=== PATIENT | male | born 1935 | race Caucasian/White ===

== ENCOUNTER 2021-02-18 10:06 | Emergency (ER) | payer MEDICARE, OTHER ==
[~2021-02-18 10:06] MED LIST: ASPIRIN325 MG PO; LOVENOX40 MG/0.4 SC
== END 2021-02-18 11:29 | disposition home or self-care (01) ==
LOC: FER 10:06
DX: S20.211A Contusion of right front wall of thorax, initial encounter (principal); R91.8 Other nonspecific abnormal finding of lung field; G20 Parkinson's disease; Z88.5 Allergy status to narcotic agent; Z79.899 Other long term (current) drug therapy; W07.XXXA Fall from chair, initial encounter; Y92.009 Unspecified place in unspecified non-institutional (private) residence as the place of occurrence of the external cause
CPT/HCPCS: 71101

== ENCOUNTER 2021-02-25 17:58 | Emergency (ER) | payer MEDICARE, OTHER | END 2021-02-25 20:40 | disposition home or self-care (01) | LOC: FER 17:58 | DX: S42.031A Displaced fracture of lateral end of right clavicle, initial encounter for closed fracture (principal); S50.811A Abrasion of right forearm, initial encounter; S50.311A Abrasion of right elbow, initial encounter; M79.645 Pain in left finger(s); G20 Parkinson's disease; M19.011 Primary osteoarthritis, right shoulder; Z88.5 Allergy status to narcotic agent; W10.9XXA Fall (on) (from) unspecified stairs and steps, initial encounter | CPT/HCPCS: 73020 ==

== ENCOUNTER 2021-07-24 11:55 | Emergency (ER) | payer MEDICARE, OTHER ==
[2021-07-24] MEDS ORDERED: VIBRAMYCIN100 MG PO (18:46)
== END 2021-07-24 18:56 | disposition home or self-care (01) ==
LOC: FER 11:55
DX: S01.111A Laceration without foreign body of right eyelid and periocular area, initial encounter (principal); Z23 Encounter for immunization; W19.XXXA Unspecified fall, initial encounter; Y92.009 Unspecified place in unspecified non-institutional (private) residence as the place of occurrence of the external cause
CPT/HCPCS: 70450; 90471; 90715

== ENCOUNTER 2021-07-26 09:56 | Emergency (ER) | payer MEDICARE, OTHER ==
[~2021-07-26 09:56] MED LIST changes: +VIBRAMYCIN100 MG PO
[2021-07-26 10:14] LABS: BASOPHIL 0.7 % (0-2); EOSINOPHIL 2.2 % (0-7); HCT 36.8 % (42.0-52.0); LYMPHOCYTE 17.8 % (15-48); MCH 31.2 pg (25.0-31.0); MCHC 32.6 g/dL (32.0-36.0); MCV 95.6 fL (78.0-100.0); MONOCYTE 8.8 % (0-12); MPV 9.7 fL (6.0-9.5); NEUTROPHIL 70.2 % (41-80); NRBC 0; PLT 158 K/uL (150-400); RBC 3.85 M/uL (4.70-6.00); WBC 9.2 K/uL (4.0-10.5)
[2021-07-26 10:40] LABS: ALBUMIN 3.2 g/dL (3.4-5.0); BILIRUBIN - TOTAL 0.8 mg/dL (0.2-1.0); BUN/CREAT RATIO (CALC) 18.8 RATIO; CREATININE 0.64 mg/dL (0.67-1.17); GLOBULIN (CALCULATION) 4.1 g/dL; POTASSIUM 3.7 mmol/L (3.5-5.1); TOTAL PROTEIN 7.3 g/dL (6.4-8.2)
[2021-07-26 11:43] LABS: BILIRUBIN NEGATIVE (NEGATIVE); BLOOD TRACE-INTACT Ery/uL (NEGATIVE); CLARITY CLEAR (CLEAR); COLOR YELLOW (YELLOW); GLUCOSE (U) NORMAL (NORMAL); LEUKOCYTES NEGATIVE Leu/uL (NEGATIVE); NITRITE NEGATIVE (NEGATIVE); PROTEIN TRACE (LOW) mg/dL (NEGATIVE); SPECIFIC GRAVITY 1.025 (1.001-1.030); UROBILINOGEN 0.2 mg/dL (0.2-1.0)
[2021-07-26 11:49] LABS: BACTERIA TRACE; SQUAMOUS EPITHELIAL CELLS RARE
== END 2021-07-26 12:50 | disposition home or self-care (01) ==
LOC: FER 09:56
PROVIDERS: Emergency Medicine
DX: G20 Parkinson's disease (principal); F02.80 Dementia in other diseases classified elsewhere, unspecified severity, without behavioral disturbance, psychotic disturbance, mood disturbance, and anxiety; S01.91XD Laceration without foreign body of unspecified part of head, subsequent encounter; J43.9 Emphysema, unspecified; Z88.5 Allergy status to narcotic agent; W19.XXXD Unspecified fall, subsequent encounter
CPT/HCPCS: 36415; 36600; 70450; 71045; 80053; 81001; 82803; 84484; 85025; 93005

== ENCOUNTER 2021-11-07 10:38 | Emergency (ER) | payer MEDICARE, OTHER ==
[2021-11-07 12:00] LABS: BASOPHIL 0.5 % (0-2); HCT 38.5 % (42.0-52.0); HGB 12.6 g/dl (13.2-18.0); LYMPHOCYTE 20.7 % (15-48); MCH 31.8 pg (25.0-31.0); MCHC 32.7 g/dL (32.0-36.0); MCV 97.2 fL (78.0-100.0); MONOCYTE 9.3 % (0-12); MPV 10.2 fL (6.0-9.5); NEUTROPHIL 66.1 % (41-80); NRBC 0; PLT 181 K/uL (150-400); RBC 3.96 M/uL (4.70-6.00); RDW 13.6 % (11.5-14.0); WBC 7.7 K/uL (4.0-10.5)
[2021-11-07 12:38] LABS: CORONAVIRUS 2019 SARS-COV-2 NEGATIVE (NEGATIVE); INFLUENZA A NAA NEGATIVE (NEGATIVE)
[2021-11-07 12:43] LABS: ALBUMIN 3.5 g/dL (3.4-5.0); BILIRUBIN - TOTAL 0.7 mg/dL (0.2-1.0); BUN/CREAT RATIO (CALC) 17.4 RATIO; CREATININE 0.69 mg/dL (0.67-1.17); GLOBULIN (CALCULATION) 4.6 g/dL; POTASSIUM 4.4 mmol/L (3.5-5.1); TOTAL PROTEIN 8.1 g/dL (6.4-8.2)
== END 2021-11-07 13:09 | disposition home or self-care (01) ==
LOC: FER 10:38
PROVIDERS: Emergency Medicine
DX: R91.8 Other nonspecific abnormal finding of lung field (principal); G20 Parkinson's disease; F02.80 Dementia in other diseases classified elsewhere, unspecified severity, without behavioral disturbance, psychotic disturbance, mood disturbance, and anxiety; Z88.5 Allergy status to narcotic agent; Z20.822 Contact with and (suspected) exposure to COVID-19
CPT/HCPCS: 36415; 71045; 80053; 83605; 83880; 84145; 84484; 85025; 87040; 93005; U0002

== ENCOUNTER 2021-12-29 22:32 | Inpatient (IN) | payer MEDICARE, OTHER ==
[~2021-12-29] VITALS: Ht 175.3 cm; Wt 83.0 kg
[2021-12-30 00:24] LABS: BASOPHIL 0.4 % (0-2); EOSINOPHIL 2.1 % (0-7); HCT 38.2 % (42.0-52.0); HGB 12.2 g/dl (13.2-18.0); LYMPHOCYTE 15.2 % (15-48); MCH 31.7 pg (25.0-31.0); MCHC 31.9 g/dL (32.0-36.0); MCV 99.2 fL (78.0-100.0); MONOCYTE 12.5 % (0-12); NEUTROPHIL 69.2 % (41-80); NRBC 0; PLT 175 K/uL (150-400); RBC 3.85 M/uL (4.70-6.00); RDW 13.7 % (11.5-14.0); WBC 9.4 K/uL (4.0-10.5)
[2021-12-30 00:28] LABS: ALBUMIN 3.2 g/dL (3.4-5.0); BILIRUBIN - TOTAL 0.7 mg/dL (0.2-1.0); BUN/CREAT RATIO (CALC) 36.8 RATIO; CREATININE 0.57 mg/dL (0.67-1.17); GLOBULIN (CALCULATION) 4.6 g/dL; INR 1.33 (0.9-1.2); PROTHROMBIN TIME 15.8 SECONDS (11.8-13.4); TOTAL PROTEIN 7.8 g/dL (6.4-8.2)
[2021-12-30 01:15] LABS: BILIRUBIN NEGATIVE (NEGATIVE); BLOOD 1+ Ery/uL (NEGATIVE); CLARITY CLEAR (CLEAR); COLOR YELLOW (YELLOW); GLUCOSE (U) NORMAL (NORMAL); LEUKOCYTES 3+ Leu/uL (NEGATIVE); NITRITE NEGATIVE (NEGATIVE); PROTEIN TRACE (LOW) mg/dL (NEGATIVE)
[2021-12-30 01:25] LABS: BACTERIA TRACE; SQUAMOUS EPITHELIAL CELLS RARE
[2021-12-30] MEDS ORDERED: CARBIDOPA-LEVO1 EAC1 PO (09:39)
[2021-12-31 06:00] LABS: BASOPHIL 0.5 % (0-2); EOSINOPHIL 2.5 % (0-7); HCT 33.2 % (42.0-52.0); HGB 10.7 g/dl (13.2-18.0); LYMPHOCYTE 14.6 % (15-48); MCH 31.9 pg (25.0-31.0); MCHC 32.2 g/dL (32.0-36.0); MCV 99.1 fL (78.0-100.0); MONOCYTE 13.1 % (0-12); MPV 9.7 fL (6.0-9.5); NEUTROPHIL 68.9 % (41-80); NRBC 0; PLT 149 K/uL (150-400); RBC 3.35 M/uL (4.70-6.00); RDW 13.8 % (11.5-14.0); WBC 7.5 K/uL (4.0-10.5)
[2021-12-31 06:19] LABS: CREATININE 0.61 mg/dL (0.67-1.17); POTASSIUM 3.6 mmol/L (3.5-5.1)
[2021-12-31 14:20] LABS: BILIRUBIN NEGATIVE (NEGATIVE); BLOOD 1+ Ery/uL (NEGATIVE); CLARITY CLEAR (CLEAR); COLOR YELLOW (YELLOW); GLUCOSE (U) NORMAL (NORMAL); LEUKOCYTES TRACE Leu/uL (NEGATIVE); NITRITE NEGATIVE (NEGATIVE); PROTEIN TRACE (LOW) mg/dL (NEGATIVE); SPECIFIC GRAVITY 1.025 (1.001-1.030)
[2021-12-31] MEDS ORDERED: NEBULIZER UNIT NEB (14:25)
[2021-12-31] MEDS ORDERED: CEFDINIR300 MG PO (14:25)
[2021-12-31] MEDS ORDERED: DUONEB 2.5-0.5M1 AMP INH (14:25)
[2021-12-31 14:30] LABS: BACTERIA 1+
[2021-12-31 14:31] LABS: URINARY RBC 20-50
== END 2021-12-31 16:21 | disposition home health service (06) | DRG 689 ==
LOC: FER 22:32 → FTCU 12-30 03:02
PROVIDERS: Emergency Medicine; Nurse Practitioner Acute Care; ADMIT Internal Medicine
DX: N30.00 Acute cystitis without hematuria (principal); G93.41 Metabolic encephalopathy; J44.1 Chronic obstructive pulmonary disease with (acute) exacerbation; I48.91 Unspecified atrial fibrillation; G20 Parkinson's disease; F02.80 Dementia in other diseases classified elsewhere, unspecified severity, without behavioral disturbance, psychotic disturbance, mood disturbance, and anxiety; R91.8 Other nonspecific abnormal finding of lung field; D50.9 Iron deficiency anemia, unspecified; Z96.642 Presence of left artificial hip joint; I51.7 Cardiomegaly; R60.0 Localized edema; Z79.82 Long term (current) use of aspirin; Z83.2 Family history of diseases of the blood and blood-forming organs and certain disorders involving the immune mechanism; Z85.46 Personal history of malignant neoplasm of prostate; Z79.899 Other long term (current) drug therapy; Z87.891 Personal history of nicotine dependence; Z88.5 Allergy status to narcotic agent; Z92.3 Personal history of irradiation; Z98.41 Cataract extraction status, right eye; Z98.42 Cataract extraction status, left eye; Z98.890 Other specified postprocedural states
CPT/HCPCS: 36415; 36600; 70450; 71045; 80048; 80053; 81001; 82140; 82803; 84145; 85025; 85610; 86140; 87088; 93005; 94010; 94640; 94667; 94668; 94762; 97162; J0696; J1650; J1940; J7030; U0002

== ENCOUNTER 2022-02-06 03:34 | Emergency (ER) | payer MEDICARE, OTHER ==
[~2022-02-06 03:34] MED LIST changes: +CARBIDOPA-LEVO1 EAC1 PO; +CEFDINIR300 MG PO; +DUONEB 2.5-0.5M1 AMP INH; +NEBULIZER UNIT NEB
[2022-02-06 04:06] LABS: BASOPHIL 0.7 % (0-2); EOSINOPHIL 5.5 % (0-7); HCT 39.7 % (42.0-52.0); HGB 12.9 g/dl (13.2-18.0); LYMPHOCYTE 21.3 % (15-48); MCH 32.3 pg (25.0-31.0); MCHC 32.5 g/dL (32.0-36.0); MCV 99.3 fL (78.0-100.0); MONOCYTE 9.6 % (0-12); MPV 9.5 fL (6.0-9.5); NEUTROPHIL 62.5 % (41-80); NRBC 0; PLT 160 K/uL (150-400); WBC 7.3 K/uL (4.0-10.5)
[2022-02-06 04:36] LABS: ALBUMIN 3.2 g/dL (3.4-5.0); BILIRUBIN - TOTAL 0.5 mg/dL (0.2-1.0); BUN/CREAT RATIO (CALC) 25.4 RATIO; CREATININE 0.67 mg/dL (0.67-1.17); GLOBULIN (CALCULATION) 4.3 g/dL; POTASSIUM 3.8 mmol/L (3.5-5.1); TOTAL PROTEIN 7.5 g/dL (6.4-8.2)
[2022-02-06 05:09] LABS: CORONAVIRUS 2019 SARS-COV-2 NEGATIVE (NEGATIVE); INFLUENZA A NAA NEGATIVE (NEGATIVE)
[2022-02-06 06:09] LABS: BILIRUBIN NEGATIVE (NEGATIVE); BLOOD NEGATIVE Ery/uL (NEGATIVE); CLARITY CLEAR (CLEAR); COLOR YELLOW (YELLOW); GLUCOSE (U) NORMAL (NORMAL); LEUKOCYTES NEGATIVE Leu/uL (NEGATIVE); NITRITE NEGATIVE (NEGATIVE); PROTEIN 1+ mg/dL (NEGATIVE); SPECIFIC GRAVITY 1.025 (1.001-1.030); UROBILINOGEN 0.2 mg/dL (0.2-1.0)
[2022-02-06 06:15] LABS: SQUAMOUS EPITHELIAL CELLS RARE
[2022-02-06 06:20] LABS: INR 1.24 (0.9-1.2); PROTHROMBIN TIME 15.2 SECONDS (11.9-13.9); PTT 28.3 SECONDS (24.9-34.6)
== END 2022-02-06 06:40 | disposition home or self-care (01) ==
LOC: FER 03:34
PROVIDERS: Internal Medicine
DX: S61.412A Laceration without foreign body of left hand, initial encounter (principal); S80.02XA Contusion of left knee, initial encounter; S80.01XA Contusion of right knee, initial encounter; J18.1 Lobar pneumonia, unspecified organism; I71.2 Thoracic aortic aneurysm, without rupture; S22.49XD Multiple fractures of ribs, unspecified side, subsequent encounter for fracture with routine healing; G20 Parkinson's disease; Z20.822 Contact with and (suspected) exposure to COVID-19; Z88.5 Allergy status to narcotic agent; Z79.899 Other long term (current) drug therapy; W06.XXXA Fall from bed, initial encounter; Y92.009 Unspecified place in unspecified non-institutional (private) residence as the place of occurrence of the external cause
CPT/HCPCS: 36415; 70450; 71250; 72170; 73560; 80053; 81001; 82140; 83605; 83735; 83880; 84145; 84439; 84443; 84484; 85025; 85610; 85730; 93005; U0002

== ENCOUNTER 2022-04-16 11:20 | Emergency (ER) | payer MEDICARE, OTHER ==
[2022-04-16 13:20] LABS: BASOPHIL 0.6 % (0-2); EOSINOPHIL 4.7 % (0-7); HCT 40.3 % (42.0-52.0); HGB 12.8 g/dl (13.2-18.0); LYMPHOCYTE 16.3 % (15-48); MCH 32.3 pg (25.0-31.0); MCHC 31.8 g/dL (32.0-36.0); MCV 101.8 fL (78.0-100.0); MONOCYTE 8.5 % (0-12); MPV 9.4 fL (6.0-9.5); NEUTROPHIL 69.7 % (41-80); NRBC 0; PLT 193 K/uL (150-400); RBC 3.96 M/uL (4.70-6.00); RDW 13.6 % (11.5-14.0); WBC 8.8 K/uL (4.0-10.5)
[2022-04-16 13:40] LABS: BUN/CREAT RATIO (CALC) 23.1 RATIO; CREATININE 0.65 mg/dL (0.67-1.17); POTASSIUM 4.9 mmol/L (3.5-5.1)
[2022-04-16 15:42] LABS: CLARITY CLEAR (CLEAR); COLOR YELLOW (YELLOW); PROTEIN TRACE (LOW) mg/dL (NEGATIVE)
[2022-04-16 15:43] LABS: BILIRUBIN NEGATIVE (NEGATIVE); BLOOD TRACE-INTACT Ery/uL (NEGATIVE); GLUCOSE (U) NORMAL (NORMAL); LEUKOCYTES NEGATIVE Leu/uL (NEGATIVE); NITRITE NEGATIVE (NEGATIVE)
[2022-04-16 15:44] LABS: BACTERIA TRACE; URINARY RBC RARE; URINARY WBC RARE
--- NOTE | 2022-04-17 15:11 | NUR ---
Mr. Thakkar presented to the ED on 04/16 due to falls. He live with his son and [id number]. Zeinab Thakkar, [id number], [phone], states that [facility] denied him and [facility] has his information. A referral was made to [facility], a response wasn't received. - Mr. Thakkar was discharged home. A referral was made to [facility] for nursing, PT/OT and social work to further assist family with placement. They are willing to pay privately for a NH. - Ms. Thakkar was provided with a list of sitter services.
== END 2022-04-16 17:07 | disposition home or self-care (01) ==
LOC: FER 11:20
PROVIDERS: Nurse Practitioner Family
DX: M54.50 Low back pain, unspecified (principal); R07.81 Pleurodynia; M25.551 Pain in right hip; J44.9 Chronic obstructive pulmonary disease, unspecified; Z88.5 Allergy status to narcotic agent; W19.XXXA Unspecified fall, initial encounter; W22.8XXA Striking against or struck by other objects, initial encounter
CPT/HCPCS: 36415; 72220; 73522; 80048; 81001; 85025